=== PATIENT | female | born 1990 | race Two or more races ===

== ENCOUNTER → 2020-02-04 | Outpatient (CLI) | payer OTHER ==
[2020-02-04 10:17] LABS: HCT 41.2 % (34.0-46.0); HGB 13.8 gm/dL (11.4-16.0); MCH 32.8 pg (25.0-35.0); MCHC 33.6 g/dL (31.0-37.0); MCV 97.8 fL (80.0-100.0); Mean Platelet Volume 8.8; Platelet Count 192 k/uL (150-450); RBC 4.21 m/uL (3.80-5.40); RDW 12.1 % (11.5-15.5); WBC 6.7 k/uL (3.8-10.6)
[2020-02-04 10:25] LABS: Prothrombin Time 10.4 sec (9.0-12.0)
[2020-02-04 15:27] LABS: African American GFR (CKD) 141.8 (60.0-200.0); Albumin 4.8 g/dL (3.80-4.90); Albumin/Globulin Ratio 2.18 (1.60-3.17); Anion Gap 8.1 mmol/L (4.00-12.00); BUN/Creat Ratio 16.67 Ratio (12.00-20.00); Calcium 9.6 mg/dL (8.7-10.3); Carbon Dioxide 26.9 mmol/L (21.6-31.8); Chol/HDL Ratio 1.78; Globulin 2.2 g/dL (1.6-3.3); LDL Cholesterol,Calculated 49.8 mg/dL (0.0-131.0); Non-African American GFR(CKD) 122.3 (60.0-200.0); Potassium 4.1 mmol/L (3.5-5.5); Total Bilirubin 0.6 mg/dL (0.2-1.2); VLDL Calculation 20.2 mg/dL (5.00-40.00)
[2020-02-04 15:30] LABS: Progesterone 6.9 ng/mL
[2020-02-04 15:35] LABS: T4, Free (Free Thyroxine) 1.4 ng/dL (0.80-1.80)
[2020-02-04 15:36] LABS: Follicle Stimulating Hormone 4.6 mIU/mL; Luteinizing Hormone 6.1 mIU/mL
[2020-02-04 16:13] LABS: EBV-EA (IgG) 1.2 AI; EBV-EBNA(IgG) >8.0 AI; EBV-VCA (IgG) 7.9 AI; EBV-VCA (IgM) 0.7 AI
== END | disposition home or self-care (01) ==
LOC: LABWHC1 09:57
PROVIDERS: ATTEND Family Medicine
DX: Z00.00 Encounter for general adult medical examination without abnormal findings (principal); R53.83 Other fatigue; K59.00 Constipation, unspecified
CPT/HCPCS: 36415; 80053; 80061; 82103; 82626; 82672; 83001; 83002; 84144; 84403; 84439; 84443; 85027; 85610; 86663; 86664; 86665